=== PATIENT | female | born 1930 | race African-American/Black ===

== ENCOUNTER 2016-09-26 12:32 | Emergency (ER) | payer OTHER ==
[2016-09-26] MEDS ORDERED: guaiFENesin/D-METHORPHAN HB 1 EACH TAB.ER.12H PO ONE (13:55)
[2016-09-26 15:30] LABS: BASOPHIL 0.3 % (0-2.0); EOSINOPHIL 0.8 % (0-4.5); MCH 29.6 pg (25.7-33.7); MCHC 33.2 g/dl (32.0-36.0); MEAN CELL VOLUME 89.1 fl (80-96); MEAN PLT VOLUME 7.2 fl (7.5-11.1); NEUTROPHILS 77.8 % (42.8-82.8); PLATELET COUNT 229 K/MM3 (134-434); RDW 14.2 % (11.6-15.6); WHITE BLOOD COUNT 6.1 K/mm3 (4.0-10.0)
[2016-09-26 15:54] LABS: ALBUMIN 3.6 g/dl (3.4-5.0); ANION GAP 9 (8-16); BILIRUBIN,TOTAL 0.3 mg/dL (0.2-1.0); CALCIUM 8.1 mg/dL (8.5-10.1); CO2 27 mmol/L (21-32); CREATININE 0.6 mg/dL (0.55-1.02); GLUCOSE,RANDOM 136 mg/dL (74-106); SGOT/AST 19 U/L (15-37); SGPT/ALT 26 U/L (12-78); TOT PROT 6.5 g/dl (6.4-8.2)
[2016-09-26 15:55] LABS: ALK PHOS 39 U/L (45-117)
--- NOTE | 2016-09-26 16:17 | PDOC ---
History of Present Illness - General Chief Complaint: Cold Symptoms Stated Complaint: cold symptoms Time Seen by Provider: 09/26/16 13:12 - History of Present Illness Initial Comments: 09/26/16 16:10 Patient is an 86 year old female with a past medical history of hypertension and diabetes presenting to the emergency room today with 3 days of cough and mucus production. Patient states that she has been bringing up green sputum. She was also concerned that her blood sugar was high today. Patient admits to nasal congestion rhinorrhea cough with green sputum production. She's not been taking anything for her symptoms. Denies fevers, chills, change in weight, chest akhil,n shortness of breath, dyspnea, nausea, vomiting, diarrhea. She denies sick contacts. Patient did not receive a flu shot this year. Past History - Past Medical History Allergies/Adverse Reactions: Allergies Allergy/AdvReac Type Severity Reaction Status Date / Time Penicillins Allergy Rash Verified 09/22/15 13:15 Home Medications: Ambulatory Orders Doxazosin Mesylate 2 mg PO DAILY 01/08/12 Pravastatin Sodium [Pravachol -] 40 mg PO HS 01/08/12 Valsartan/Hydrochlorothiazide [Diovan Hct 320-25 mg Tablet] 80 mg DAILY Verapamil HCl [Verapamil ER Pm] 240 mg PO BID 01/08/12 Calcium Carbonate/Vitamin D3 [Os-Shay 500+D Tablet] 1 each PO DAILY 04/27/14 Cholecalciferol (Vitamin D3) [D3-2000] 2,000 unit PO DAILY 04/27/14 Chlorpheniramine/Dextromethorp [Coricidin Hbp Cough & Cold Tab] 1 each PO BID # 20 tablet 09/26/16 HTN: Yes Hypercholesterolemia: Yes - Immunization History Immunization Up to Date: Yes - Psycho/Social/Smoking Cessation Hx Anxiety: No Suicidal Ideation: No Smoking Status: No Smoking History: Never smoked Number of Cigarettes Smoked Daily: 0 Hx Alcohol Use: No Drug/Substance Use Hx: No Substance Use Type: None *Physical Exam - Vital Signs Last Vital Signs Temp Pulse Resp BP Pulse Ox 94 L 09/26/16 13:15 - Physical Exam Comments: 09/26/16 16:10 GENERAL: Well developed, well nourished. Awake and alert. No acute distress. HEENT: Normocephalic, atraumatic. (-) TTP of maxillary and frontal sinuses PERRLA, EOMI. No conjunctival pallor. Sclera are non-icteric. Moist mucous membranes. Nasal passages show mild congestion. Posterior pharynx is clear. TMs are clear B /L, pearly mariano in color with good landmarks, (+) cone of light. NECK: Supple. Full ROM. No JVD. Carotid pulses 2+ and symmetric, without bruits. No thyromegaly. No lymphadenopathy. CARDIOVASCULAR: Regular rate and rhythm. No murmurs, rubs, or gallops. Distal pulses are 2+ and symmetric. PULMONARY: No evidence of respiratory distress. Lungs clear to auscultation bilaterally. No wheezing, rales or rhonchi. ABDOMINAL: Soft. Non-tender. Non-distended. No rebound or guarding. No organomegaly. Normoactive bowel sounds. MUSCULOSKELETAL Normal range of motion at all joints. No bony deformities or tenderness. No CVA tenderness. EXTREMITIES: No cyanosis. No clubbing. No edema. No calf tenderness. SKIN: Warm and dry. Normal capillary refill. No rashes. No jaundice. NEUROLOGICAL: Alert, awake, appropriate. Cranial nerves 2-12 intact. No deficits to light touch and temperature in face, upper extremities and lower extremities. No motor deficits in the in face, upper extremities and lower extremities. Normoreflexic in the upper and lower extremities. Normal speech. Toes are down- going bilaterally. Gait is normal without ataxia. PSYCHIATRIC: Cooperative. Good eye contact. Appropriate mood and affect. 09/26/16 16:13 ED Treatment Course - LABORATORY CBC & Chemistry Diagram: 09/26/16 15:10 09/26/16 15:10 - ADDITIONAL ORDERS Additional order review: Laboratory Results 09/26/16 15:10 Sodium 134 L Potassium 3.8 Chloride 98 Carbon Dioxide 27 Anion Gap 9 BUN 10 D Creatinine 0.6 D Creat Clearance w eGFR > 60 Random Glucose 136 H D Calcium 8.1 L Total Bilirubin 0.3 D AST 19 ALT 26 D Alkaline Phosphatase 39 L D Total Protein 6.5 Albumin 3.6 09/26/16 15:10 RBC 4.38 MCV 89.1 MCHC 33.2 RDW 14.2 MPV 7.2 L Neutrophils % 77.8 D Lymphocytes % 11.7 D Monocytes % 9.4 Eosinophils % 0.8 D Basophils % 0.3 - RADIOLOGY Radiology Studies Ordered: Category Date Time Status CHEST PA & LAT [RAD] Stat Radiology 09/26/16 13:55 Taken Medical Decision Making - Medical Decision Making 09/26/16 15:14 Patient is an 86-year-old female with past medical history of diabetes and hypertension. She presents today with nasal congestion and cough and sputum traction 3 days. We'll obtain basic lab work to see if there is a systemic infection. Chest x-ray to look for pneumonia. Most likely upper respiratory infection. We'll give a mucolytic. We will reevaluate 09/26/16 16:15 Lab work shows a white blood cell count of 6.2. Her blood glucose level is 136. Chest x-ray is clear with no evidence of infiltrates or pneumonia. Pt has a upper respiratory infection. Vitals are stable and the pt. is afebrile. Pt. is feeling better after mucolytic and fluids. Will discharge home at this time. *DC/Admit/Observation/Transfer Diagnosis at time of Disposition: Upper respiratory infection Qualifiers: URI type: unspecified viral URI Qualified Code(s): J06.9 - Acute upper respiratory infection, unspecified; B97.89 - Other viral agents as the cause of diseases classified elsewhere - Discharge Dispostion Disposition: HOME Condition at time of disposition: Improved - Patient Instructions Printed Discharge Instructions: DI for Viral Upper Respiratory Infection -- Adult Additional Instructions: You have an upper respiratory infection. Drink plenty of fluids and take your home medications as prescribed. You may have the cough for up to three weeks. You may take the decongestant as prescribed. Return to the ED if you develop new fevers, have elevated blood sugers, or difficulty breathing.
[2016-09-26 16:47] VITALS: TEMP 98.6
[2016-09-26 16:49] VITALS: BP 160/76; PULSE 90; BMI 21.9
--- NOTE | 2016-09-28 15:17 | EKG ---
Test Reason : Blood Pressure : / mmHG Vent. Rate : 080 BPM Atrial Rate : 080 BPM P-R Int : 166 ms QRS Dur : 090 ms QT Int : 356 ms P-R-T Axes : 049 015 041 degrees QTc Int : 410 ms SINUS RHYTHM WITH PREMATURE ATRIAL COMPLEXES OTHERWISE NORMAL ECG NO PREVIOUS ECGS AVAILABLE Confirmed by ALEXIS MAIN MD ([id number]) on 09/28/2016 3:17:45 PM Referred By: Confirmed By:ALEXIS MAIN MD
== END 2016-09-26 16:44 | disposition home or self-care (01) ==
LOC: JER 12:32
DX: J06.9 Acute upper respiratory infection, unspecified (principal); B97.89 Other viral agents as the cause of diseases classified elsewhere; I10 Essential (primary) hypertension; E11.9 Type 2 diabetes mellitus without complications; E78.00 Pure hypercholesterolemia, unspecified
CPT/HCPCS: 36415; 71020-TC; 80053; 85025; 93005; 93010; 99284-25

== ENCOUNTER 2017-05-23 22:37 | Emergency (ER) | payer OTHER ==
[2017-05-23 22:55] VITALS: BP 137/73; PULSE 71; TEMP 98.5; BMI 27.1
== END 2017-05-23 23:03 | disposition left against medical advice (07) ==
LOC: JER 22:37 → SUPCPDRO 22:37 → JER 23:03
DX: Z53.21 Procedure and treatment not carried out due to patient leaving prior to being seen by health care provider (principal)
CPT/HCPCS: 99281-25

== ENCOUNTER 2017-06-04 11:44 | Emergency (ER) | payer OTHER ==
[2017-06-04 11:51] VITALS: BMI 27.6
[2017-06-04] MEDS ORDERED: SODIUM CHLORIDE 0.9% 1000 ML INFUS.BAG IV ONE (12:23)
[2017-06-04] MEDS ORDERED: ACETAMINOPHEN 325 MG TABLET (FP) PO ONE (12:23)
--- NOTE | 2017-06-04 12:23 | PDOC ---
History of Present Illness - General History Source: Patient Exam Limitations: No Limitations - History of Present Illness Initial Comments: 06/04/17 13:24 Patient is a 86 year old female with a significant past medical history of Hypercholesterolemia, hypertension and diabetes who presents to the ED with complaints of lightheadedness that began this morning. Patient reports lightheadedness began this morning suddenly while at home. She reports experiencing intermittent headache secondary to lightheadedness. Patient states headache is localized behind her eyes. She reports experiencing nasal drip and coughing secondary to lightheadedness. Patient states she has not taken any medication for lightheadedness or headache. Denies chest pain, SOB. Denies blurred vision. Denies nausea, vomiting. Denies any other symptoms. Allergies: Seasonal allergies Surgical history: None Social history: No smoking. No alcohol. No illicit drugs. PMD: Dr. Pratik Early <Dash Nunez - Last Filed: 06/04/17 13:24> <Lloy Ching - Last Filed: 06/04/17 14:47> - General Chief Complaint: Lightheaded Stated Complaint: DIZZINESS Time Seen by Provider: 06/04/17 11:57 Past History <Dash Nunez - Last Filed: 06/04/17 13:24> - Past Medical History Cancer: Yes (R BREAST LUMPECTOMY) HTN: Yes Hypercholesterolemia: Yes - Immunization History Immunization Up to Date: Yes - Suicide/Smoking/Psychosocial Hx Smoking Status: No Smoking History: Never smoked Have you smoked in the past 12 months: No Number of Cigarettes Smoked Daily: 0 Hx Alcohol Use: No Drug/Substance Use Hx: No Substance Use Type: None <Loly Ching - Last Filed: 06/04/17 14:47> - Past Medical History Allergies/Adverse Reactions: Allergies Allergy/AdvReac Type Severity Reaction Status Date / Time Penicillins Allergy Rash Verified 06/04/17 13:25 Home Medications: Ambulatory Orders Valsartan/Hydrochlorothiazide [Diovan Hct 320-25 mg Tablet] 80 mg PO DAILY 01/07 Verapamil HCl [Verapamil ER Pm] 240 mg PO BID 01/08/12 Calcium Carbonate/Vitamin D3 [Os-Shay 500+D Tablet] 1 each PO DAILY 04/27/14 Ascorbic Acid [Vitamin C] 100 mg PO DAILY 06/04/17 Aspirin [ASA -] 81 mg PO DAILY 06/04/17 Atorvastatin Ca [Lipitor] 10 mg PO HS 06/04/17 Cholecalciferol (Vitamin D3) [Vitamin D3] 2,000 unit PO DAILY 06/04/17 Denosumab [Prolia] 60 mg SQ MONTHLY 06/04/17 Dietary Supplement [Hyprost] 1 each PO DAILY 06/04/17 Furosemide 20 mg PO DAILY 06/04/17 Hydralazine HCl 50 mg PO DAILY 06/04/17 Multivitamin/Iron/Folic Acid [Centrum Adults Tablet] 1 each PO DAILY 06/04/17 Tramadol HCl 50 mg PO DAILY 06/04/17 Review of Systems - Review of Systems Able to Perform ROS?: Yes Comments:: 06/04/17 13:24 GENERAL/CONSTITUTIONAL: No fever or chills. No weakness. HEAD, EYES, EARS, NOSE AND THROAT: No change in vision. No ear pain or discharge. No sore throat. GASTROINTESTINAL: No nausea, vomiting, diarrhea or constipation. GENITOURINARY: No dysuria, frequency, or change in urination. CARDIOVASCULAR: No chest pain or shortness of breath. RESPIRATORY: No cough, wheezing, or hemoptysis. MUSCULOSKELETAL: No joint or muscle swelling or pain. No neck or back pain. SKIN: No rash NEUROLOGIC: No headache, vertigo, loss of consciousness, or change in strength/ sensation. ENDOCRINE: No increased thirst. No abnormal weight change. HEMATOLOGIC/LYMPHATIC: No anemia, easy bleeding, or history of blood clots. ALLERGIC/IMMUNOLOGIC: No hives or skin allergy. All Other Systems: Reviewed and Negative <Dash Nunez - Last Filed: 06/04/17 13:24> *Physical Exam - Vital Signs Last Vital Signs Temp Pulse Resp BP Pulse Ox 98.4 F 90 20 133/76 98 06/04/17 11:48 06/04/17 11:48 06/04/17 11:48 06/04/17 11:48 06/04/17 11:48 - Physical Exam Comments: 06/04/17 13:24 GENERAL: Awake, alert, and fully oriented, in no acute distress HEAD: No signs of trauma EYES: PERRLA, EOMI, sclera anicteric, conjunctiva clear ENT: +Tenderness over frontal sinus. +Bogginess of nares. No nystagmus. Auricles normal inspection, hearing grossly normal, nares patent, oropharynx clear without exudates. Moist mucosa NECK: Normal ROM, supple, no lymphadenopathy, JVD, or masses LUNGS: Breath sounds equal, clear to auscultation bilaterally. No wheezes, and no crackles HEART: Regular rate and rhythm, normal S1 and S2, no murmurs, rubs or gallops ABDOMEN: Soft, nontender, normoactive bowel sounds. No guarding, no rebound. No masses EXTREMITIES: Normal range of motion, no edema. No clubbing or cyanosis. No cords, erythema, or tenderness NEUROLOGICAL: Cranial nerves II through XII grossly intact. Normal speech, normal gait SKIN: Warm, Dry, normal turgor, no rashes or lesions noted. <Dash Nunez - Last Filed: 06/04/17 13:24> - Vital Signs Last Vital Signs Temp Pulse Resp BP Pulse Ox 98.4 F 90 20 133/76 98 06/04/17 11:48 06/04/17 11:48 06/04/17 11:48 06/04/17 11:48 06/04/17 11:48 <Loly Ching - Last Filed: 06/04/17 14:47> ED Treatment Course - LABORATORY CBC & Chemistry Diagram: 06/04/17 13:00 06/04/17 13:00 - ADDITIONAL ORDERS Additional order review: 06/04/17 13:00 RBC 4.49 MCV 89.5 MCHC 33.7 RDW 13.4 MPV 7.1 L Neutrophils % 68.7 Lymphocytes % 17.7 D Monocytes % 10.0 Eosinophils % 2.7 D Basophils % 0.9 - Medications Given in the ED: ED Medications Discontinued Medications Generic Name Dose Route Start Last Admin Trade Name Freq PRN Reason Stop Dose Admin Acetaminophen 975 mg 06/04/17 12:23 06/04/17 13:13 Tylenol - PO 06/04/17 12:24 975 mg ONCE ONE Administration Sodium Chloride 500 ml 06/04/17 12:23 06/04/17 13:12 Normal Saline - IV 06/04/17 12:24 500 ml ONCE ONE Administration <Dash Nunez - Last Filed: 06/04/17 13:24> - LABORATORY CBC & Chemistry Diagram: 06/04/17 13:00 06/04/17 13:00 <Loly Ching - Last Filed: 06/04/17 14:47> Medical Decision Making - Medical Decision Making 06/04/17 12:36 a/p 86yo female with frontal headache/sinus congestion -suspect poss allergic sinus headache -will check labs, cxr, reassess -neuro intact -will give ivf hydration for lightheaded 06/04/17 14:44 pt feels better. Discussed lab and imaging. no paulino at this time. no dizziness. Son at the bedside. Pt laughing. Stable for d/c to home. Will follow up with PMD. <Loly Ching - Last Filed: 06/04/17 14:47> *DC/Admit/Observation/Transfer - Attestations Scribe Attestion: 06/04/17 13:29 Documentation prepared by Dash Nunez, acting as biomedical engineering supervisor for Loly Ching DO, MD/. <Dash Nunez - Last Filed: 06/04/17 13:24> - Discharge Dispostion Admit: No - Attestations Physician Attestion: 06/04/17 14:46 I, Dr. Loly Ching DO, attest that this document has been prepared under my direction and personally reviewed by me in its entirety. I further attest, that it accurately reflects all work, treatment, procedures and medical decision -making performed by me. <Loly Ching - Last Filed: 06/04/17 14:47> Diagnosis at time of Disposition: Headache, Congestion of paranasal sinus - Discharge Dispostion Disposition: HOME Condition at time of disposition: Stable - Referrals Referrals: Pratik Early MD [Primary Care Provider] - - Patient Instructions Printed Discharge Instructions: DI for Headache Additional Instructions: Please take all meds as prescribed. Please follow up with your PMD. Please return to the ED with any further concerns.
[2017-06-04] MEDS ORDERED: ACETAMINOPHEN 325 MG TABLET (FP) ONE (12:50)
[2017-06-04 13:16] LABS: BASOPHIL 0.9 % (0-2.0); EOSINOPHIL 2.7 % (0-4.5); MCH 30.2 pg (25.7-33.7); MCHC 33.7 g/dl (32.0-36.0); MEAN CELL VOLUME 89.5 fl (80-96); MEAN PLT VOLUME 7.1 fl (7.5-11.1); NEUTROPHILS 68.7 % (42.8-82.8); PLATELET COUNT 240 K/MM3 (134-434); RDW 13.4 % (11.6-15.6); WHITE BLOOD COUNT 4.8 K/mm3 (4.0-10.0)
[2017-06-04 13:41] LABS: ANION GAP 6 (8-16); CALCIUM 8.4 mg/dL (8.5-10.1); CO2 29 mmol/L (21-32); CREATININE 0.8 mg/dL (0.55-1.02); GLUCOSE,RANDOM 126 mg/dL (74-106); SGOT/AST 17 U/L (15-37); SGPT/ALT 33 U/L (12-78)
[2017-06-04 13:44] LABS: ALK PHOS 48 U/L (45-117); BILIRUBIN,TOTAL 0.5 mg/dL (0.2-1.0); TOT PROT 7.2 g/dl (6.4-8.2)
[2017-06-04 15:06] VITALS: BP 148/68; PULSE 18; TEMP 98.5
== END 2017-06-04 15:17 | disposition home or self-care (01) ==
LOC: JER 11:44
DX: J34.89 Other specified disorders of nose and nasal sinuses (principal); I10 Essential (primary) hypertension; E78.00 Pure hypercholesterolemia, unspecified; E11.9 Type 2 diabetes mellitus without complications; Z85.3 Personal history of malignant neoplasm of breast; Z79.82 Long term (current) use of aspirin
CPT/HCPCS: 36415; 71020-TC; 80053; 85025; 99283-25

== ENCOUNTER 2018-07-02 18:21 | Emergency (ER) | payer OTHER ==
[2018-07-02 18:33] VITALS: BMI 24.4
--- NOTE | 2018-07-02 18:43 | PDOC ---
History of Present Illness - General Chief Complaint: Lightheaded Stated Complaint: DIZZINESS Time Seen by Provider: 07/02/18 18:42 - History of Present Illness Initial Comments: 07/02/18 19:07 The patient is an 87 year old female with a history of HTN, HLD, Breast CA, Dizziness who presents for evaluation of lightheadedness. The patient reports that she has been experiencing episodes of lightheadedness over several months. She notes that her blood pressure has been higher than usual today to the 170s systolic prompting her presentation to the ED for further evaluation. She notes that she took her blood pressure medication prior to presentation in the ED. She otherwise denies fevers, chills, headache, SOB, chest pain, nausea, vomiting, abdominal pain, numbness, tingling, weakness, or changes with urination or bowel movements. Past History - Past Medical History Allergies/Adverse Reactions: Allergies Allergy/AdvReac Type Severity Reaction Status Date / Time Penicillins Allergy Rash Verified 07/02/18 18:33 Home Medications: Ambulatory Orders Verapamil HCl [Verapamil ER Pm] 240 mg PO BID 01/08/12 Calcium Carbonate/Vitamin D3 [Os-Shay 500+D Tablet] 1 each PO DAILY 04/27/14 Ascorbic Acid [Vitamin C] 1,000 mg PO DAILY 06/04/17 Aspirin [ASA -] 81 mg PO DAILY 06/04/17 Atorvastatin Ca [Lipitor] 10 mg PO HS 06/04/17 Cholecalciferol (Vitamin D3) [Vitamin D3] 2,000 unit PO DAILY 06/04/17 Dietary Supplement [Hyprost] 1 each PO DAILY 06/04/17 Furosemide 20 mg PO DAILY 06/04/17 Hydralazine HCl 50 mg PO DAILY 06/04/17 Multivitamin/Iron/Folic Acid [Centrum Adults Tablet] 1 each PO DAILY 06/04/17 Tramadol HCl 50 mg PO DAILY PRN 06/04/17 Cyanocobalamin (Vitamin B-12) [Vitamin B-12] 1,000 mcg PO DAILY 02/16/18 Propylene Glycol/Peg 400/Pf [Systane 0.3-0.4% Eye Drops] 1 drop OU BID 02/16/18 Tramadol HCl 50 mg PO PRN 02/16/18 Valsartan 160 mg PO DAILY 02/16/18 Losartan Potassium 50 mg PO DAILY 11/18/18 Cancer: Yes (R BREAST LUMPECTOMY) COPD: No HTN: Yes Hypercholesterolemia: Yes - Immunization History Immunization Up to Date: Yes - Suicide/Smoking/Psychosocial Hx Smoking Status: No Smoking History: Never smoked Have you smoked in the past 12 months: No Number of Cigarettes Smoked Daily: 0 Hx Alcohol Use: No Drug/Substance Use Hx: No Substance Use Type: None Review of Systems - Review of Systems Comments:: 07/02/18 19:10 Constitutional: No fevers, chills, fatigue, malaise HEENT: No Rhinorrhea, nasal congestion, visual changes Cardiovascular: Lightheadedness. No chest pain, syncope, palpitations, Respiratory: No Cough, SOB, Hemoptysis, Gastrointestinal: No Abdominal pain, Nausea, Vomiting, Constipation, Diarrhea, Melena Genitourinary: No Dysuria, Frequency, Urgency, Hesitancy, Hematuria, Flank pain Musculoskeletal: No Myalgia, arthralgia Skin: No rashes, itching, bruising, pallor Neurologic: No Headache, Dizziness, Numbness, Weakness, or Tingling Psychiatric: No Hallucinations. No SI or HI *Physical Exam - Vital Signs Last Vital Signs Temp Pulse Resp BP Pulse Ox 99.2 F 90 18 138/76 99 07/02/18 18:30 07/02/18 18:30 07/02/18 18:30 07/02/18 18:30 07/02/18 18:30 - Physical Exam Comments: 07/02/18 19:10 General Appearance: Nourished. No Apparent Distress HEENT: EOMI, CHERY. No Pharyngeal Erythema, Tonsillar Exudate, Tonsillar Erythema Neck: No Cervical Lymphadenopathy Respiratory/Chest: Lungs Clear, Normal Breath Sounds. No Crackles, Rales, Rhonchi, Wheezing Cardiovascular: Regular Rhythm, Regular Rate. 3/6 systolic murmur noted on exam. No Gallops, Rubs Gastrointestinal/Abdominal: Normal Bowel Sounds, Soft. No Guarding, Rebound, Tenderness Musculoskeletal: No CVA Tenderness Extremity: Normal Capillary Refill Integumentary: Normal Color, Dry, Warm Neurologic: physical therapy director II-XII NML intact, Fully Oriented, Alert, Normal Mood/Affect, Normal Response, Motor Strength 5/5. Heart Score/ECG Review #1 ECG reviewed & interpreted by me at: 19:11 General ECG Interpretation: Sinus Rhythm, Normal Rate, Normal Intervals, No acute ischemic changes ED Treatment Course - LABORATORY CBC & Chemistry Diagram: 07/02/18 19:38 07/02/18 19:38 Medical Decision Making - Medical Decision Making 07/02/18 19:11 The patient is an 87 year old female with a history of HTN, HLD, Breast CA, Dizziness who presents for evaluation of lightheadedness. Differential includes but is not limited to: ACS, Arrhythmia, Vertigo, Infectious, Metabolic Derangement. Given the patient's history and physical exam, we will obtain a cbc, cmp, troponin, ekg, chest plain film, ua to evaluate further. We will treat with iv fluids and meclazine and continue to monitor and reassess while here in the ED. 07/02/18 21:04 CBC, cmp, troponin, ua are unremarkable. Chest plain film is unremarkable. The patient reports some improvement in her symptoms and appears clinically well on exam. We are comfortable discharging the patient home with primary care provider follow up. We discussed the results, plan, and return precautions with the patient who voiced understanding and is agreeable with the plan. *DC/Admit/Observation/Transfer Diagnosis at time of Disposition: Labile blood pressure - Discharge Dispostion Disposition: HOME Condition at time of disposition: Stable Decision to Admit order: No - Referrals Referrals: Pratik Early MD [Primary Care Provider] - - Patient Instructions Printed Discharge Instructions: DI for Dizziness-Nonvertigo Additional Instructions: Please return to the ER if you experience concerning or worsening symptoms including worsening difficulty breathing, weakness, or chest pain. Your lab results and chest x-ray were normal here in the ER. Please call to schedule a follow up appointment with your primary care provider within 2-3 days to discuss your ER visit and further management of your symptoms. - Post Discharge Activity
[2018-07-02] MEDS ORDERED: MECLIZINE HCL 25 MG TABLET (FP) PO ONE (19:05)
[2018-07-02] MEDS ORDERED: SODIUM CHLORIDE 500 ML IV STA (19:05)
[2018-07-02] MEDS ORDERED: MECLIZINE HCL 25 MG TABLET (FP) ONE (19:16)
--- NOTE | 2018-07-02 19:43 | PDOC ---
Attending Attestation - HPI HPI: 07/02/18 20:13 The patient is a 87 year old female, with a significant PMH of HLD, HTN, dizziness and breast cancer, who presents to the emergency department complaining of lightheadedness for over several months. The patient states her blood pressure reading was higher than usual with a systolic in the 170s ( usually 130s) and reports taking her blood pressure medication prior to presentation in the ED. The patient denies chest pain, shortness of breath, and headache. Denies fever, chills, nausea, vomit, diarrhea and constipation. Denies any numbness or tingling or weakness. Allergies: Penicillin Past surgical history: None reported Social history: No reported PCP: Pratik Early Documentation prepared by tJ Wang, acting as medical billing instructor for Jennifer High MD. - Physicial Exam PE: 07/02/18 20:13 GENERAL: Well developed, well nourished. Awake and alert. No acute distress. HEENT: Normocephalic, atraumatic. Moist mucous membranes.. NECK: Supple. Full ROM. No JVD. Carotid pulses 2+ and symmetric, without bruits. No thyromegaly. No lymphadenopathy. CARDIOVASCULAR: +Systolic murmur. Regular rate and rhythm. PULMONARY: No evidence of respiratory distress. Lungs clear to auscultation bilaterally. No wheezing, rales or rhonchi. ABDOMINAL: Soft. Non-tender. Non-distended. No rebound or guarding. No organomegaly. Normoactive bowel sounds. EXTREMITIES: No cyanosis. No clubbing. No edema. No calf tenderness. SKIN: Warm and dry. Normal capillary refill. No rashes. No jaundice. NEUROLOGICAL: Alert, awake, appropriate. Cranial nerves 2-12 intact. PSYCHIATRIC: Cooperative. Good eye contact. Appropriate mood and affect. Documentation prepared by Jt Wang, acting as medical billing instructor for Jennifer High MD. <Jt Wang - Last Filed: 07/02/18 20:13> - Resident Resident Name: Andrea Gong - ED Attending Attestation I have performed the following: I have examined & evaluated the patient, The case was reviewed & discussed with the resident, I agree w/resident's findings & plan, Exceptions are as noted - Medical Decision Making 07/02/18 21:08 states that she had vertigo in the past, however today she did not have a spinning sensation. She came because her BP at home was very elevated. She has on focal neuro deficits denies any nausea or vomiting or chest pain EKG was NSR UA negative cbc and chemistries unremarkable troponin negative BP was 138/76 07/02/18 21:12 imp essential HTN d/c home <Jennifer High - Last Filed: 07/02/18 21:14>
[2018-07-02 19:54] LABS: BASO % 0.7 % (0-2.0); EOS % 3.3 % (0-4.5); HEMATOCRIT 41.6 % (32.4-45.2); HEMOGLOBIN 13.8 GM/dL (10.7-15.3); MCH 29.6 pg (25.7-33.7); MCHC 33.1 g/dl (32.0-36.0); MEAN CELL VOLUME 89.6 fl (80-96); MEAN PLT VOLUME 7.1 fl (7.5-11.1); MONO % 13.3 % (3.8-10.2); NEUT % 55.7 % (42.8-82.8); PLATELET COUNT 272 K/MM3 (134-434); RBC 4.65 M/mm3 (3.60-5.2); RDW 14.2 % (11.6-15.6); WHITE BLOOD COUNT 4.2 K/mm3 (4.0-10.0)
[2018-07-02 20:16] LABS: ALK PHOS 46 U/L (45-117); ANION GAP 11 MMOL/L (8-16); BILIRUBIN,TOTAL 0.3 mg/dL (0.2-1); BLOOD UREA NITROGEN 13 mg/dL (7-18); CALCIUM 10.3 mg/dL (8.5-10.1); CHLORIDE 95 mmol/L (98-107); CO2 28 mmol/L (21-32); CREATININE 0.8 mg/dL (0.55-1.3); GLUCOSE,RANDOM 102 mg/dL (74-106); POTASSIUM 3.8 mmol/L (3.5-5.1); SGOT/AST 24 U/L (15-37); SGPT/ALT 33 U/L (13-61); SODIUM 133 mmol/L (136-145); TOT PROT 7.1 g/dl (6.4-8.2)
[2018-07-02 20:17] VITALS: PULSE 88; TEMP 99
[2018-07-02 20:46] LABS: URINE APPEARANCE CLEAR; URINE BILIRUBIN NEGATIVE (<2.0 mg/dL); URINE COLOR COLORLESS; URINE GLUCOSE (UA) NEGATIVE (NEGATIVE); URINE KETONE NEGATIVE (NEGATIVE); URINE LEUK ESTERASE TRACE (NEGATIVE); URINE NITRITE NEGATIVE (NEGATIVE); URINE PROTEIN NEGATIVE (NEGATIVE); URINE UROBILINOGEN NEGATIVE mg/dL (0.2-1.0)
[2018-07-02 20:49] LABS: EPI CELLS RARE /HPF (FEW); URINE BACTERIA RARE /hpf (NONE SEEN)
[2018-07-02 21:31] VITALS: BP 157/77
--- NOTE | 2018-07-03 18:29 | EKG ---
Test Reason : Blood Pressure : / mmHG Vent. Rate : 083 BPM Atrial Rate : 083 BPM P-R Int : 168 ms QRS Dur : 090 ms QT Int : 372 ms P-R-T Axes : 040 -04 029 degrees QTc Int : 437 ms NORMAL SINUS RHYTHM NORMAL ECG WHEN COMPARED WITH ECG OF 16-FEB-2018 16:16, NO SIGNIFICANT CHANGE WAS FOUND Confirmed by ALEXIS MAIN MD ([id number]) on 07/03/2018 6:28:43 PM Referred By: Confirmed By:ALEXIS MAIN MD
== END 2018-07-02 21:17 | disposition home or self-care (01) ==
LOC: JER 18:21
PROC: 3E0337Z Introduction of Electrolytic and Water Balance Substance into Peripheral Vein, Percutaneous Approach (ICD-10-PCS; principal; 2018-07-02)
DX: I10 Essential (primary) hypertension (principal); E78.00 Pure hypercholesterolemia, unspecified; Z85.3 Personal history of malignant neoplasm of breast
CPT/HCPCS: 36415; 71045-TC-FY; 80053; 81003; 81015; 82550; 84484; 85025; 93005; 93010; 96360; 99284-25